=== PATIENT | female | born 1975 | race Caucasian/White ===

== ENCOUNTER 2017-08-04 12:05 | Day surgery (SDC) | payer OTHER, SELFPAY ==
[2017-08-04] VITALS (7 sets, daily range): BP systolic 112–140; BP diastolic 73–90; PULSE 42–88; RESP 12–16; TEMP 36.3–36.4; O2SAT 97–100; BMI 22.4
--- NOTE | 2017-08-04 | PATH_ITS ---
[facility] Accession Number: [id number] . 01 Material submitted: . ENDOMETRIAL CURRETTINGS . 02 Diagnosis: Endometrial Curettings: Portions of weakly proliferative endometrium with features of shedding; negative for glandular hyperplasia, cytologic atypia, and malignancy. Multiple portions of squamous and metaplastic squamous mucosa with reactive changes; negative for squamous dysplasia and malignancy. MRV/08/05/2017 . 02 Electronically signed: . Cami Mitchell MD, Pathologist NPI- [id number] . 01 Gross description: . Received one formalin-filled container, labeled with the patient's name, labeled endometrial curettings. The specimen consists of approximately a 0.75 cc aggregate of tissue, mucoid material, and blood, which is filtered, wrapped, and entirely submitted in one cassette. ([id number]) /FRR . 02 Pathologist provided ICD-10: N85.00 . 02 CPT . 271509 Performed at: 01 [facility] [address], [place], [place] [id number] MD Josep Galan MD Phone: [phone] Performed at: 02 [facility] [address] [place], [place] [id number] MD Deep Hood MD Phone: [phone]
--- NOTE | 2017-08-04 13:45 | PM.PREOP ---
Pre-operative Note Interval Note Pre-op Check: History & Physical Reviewed by Physician
[2017-08-04] MEDS: LACTATED RINGERS 1,000 ML 42 ML IV ×2 (14:20→15:29)
[2017-08-04] MEDS: CEFAZOLIN 2 GM/100 ML FROZ.PIGGY IV (14:25)
--- NOTE | 2017-08-04 14:44 | SUR.OPER ---
Lithotomy on padded OR bed, head on pillow, arms secured on padded arm boards at <90 degrees abduction. Legs secured in padded yellow fins stirrups.
[2017-08-04] MEDS: BUPIVACAINE 0.25% W/ EPI 50 ML VIAL INJ (14:50)
[2017-08-04] MEDS: SILVER NITRATE STICK 2 EACH TOP (15:10)
--- NOTE | 2017-08-04 15:16 | PM.GYNOP.1 ---
Operative Date/Time/Diagnoses - Date of procedure: 08/04/17 Time of procedure: 14:30 Pre-op diagnosis: Abnormal uterine bleeding Post-op diagnosis: same Procedure: Procedures Operation Date: 08/04/17 13:15 Actual Procedures Side Surgeon p Hysteroscopy D&C w/Endometrial Ablation Jo-Ann Chaney MD Indications: The patient is a 41-year-old 2 para 2 female here for hysteroscopy, Dilation and Curettage, and endometrial ablation for management of bothersome abnormal uterine bleeding. Her history is notable for endometriosis, bothersome bleeding, and pelvic pain. She has tried Ortho Evra and had heavy clots. Progesterone intrauterine device insertion was attempted twice in the clinic and could not sound the uterus past 3 cm. She had a pelvic ultrasound suggesting right pelvic congestion but was otherwise normal. Endometrial biopsy was obtained and was benign. Her endometriosis pain had been well controlled since her last laparoscopy, right salpingo-oophorectomy, and fulguration of endometriosis 2 years ago, but it has increased again in the last 11-12 months or so. She has noticed her menses, which have always been regular, have gradually gotten heavier and more painful. She has tried control pills and Depo-Provera in the past, both of which negatively affected her moods. She was also on Depo Lupron for 6 months. Dysmenorrhea starts 1 day prior to onset of bleeding which typically lasts for about 7 days. She has had 2 pregnancies, the first of which ended in a delivery for nonreassuring heart tracing, and the 2nd was repeat with a tubal ligation. The patient has also had worsening headaches over the last 4-6 months with exacerbations prior to onset of menses. Various management options were reviewed and the patient desired endometrial ablation and D&C to manage her abnormal uterine bleeding, though she understands that this may be minimally beneficial for management of her pain concerns. The risks, benefits, limitations, alternatives, expectations of surgery were discussed and consent was reviewed and signed prior to the day of surgery Surgeon: Jo-Ann Chaney Anesthesia Type: General and Local Operative Notes Findings: Exam under anesthesia: Bimanual exam noted a 7 week size retroverted uterus with no adnexal masses palpable. Hysteroscopic findings: Endometrial cavity appeared normal. Tubal ostia were seen bilaterally. Uterine cavity length was measured to be 5 cm and width 3 cm. Post endometrial ablation good cauterization was noted throughout the cavity. Closure Type: not applicable Specimen(s): endometrial curettings Applied: device(s) (Novasure lot # [id number], exp date 05/22/2018) Estimated blood loss (mL): 20 Blood products transfused: none Procedure in detail: The patient was taken to the operating room where general anesthesia with LMA was administered without difficulty. She was then placed in the high dorsal lithotomy position with her lower extremities in Yellofin stirrups. Exam under anesthesia was then performed with the findings as noted above. Perineum and vagina were then prepped and draped in a sterile fashion, and in-and-out catheterization was performed. Procedure Time-Out was performed. A sterile bivalve speculum was then placed. The posterior lip of the cervix was then grasped with a single-toothed tenaculum. Local anesthetic using 0.25% Marcaine with epinephrine was then injected at the 2:00, 4:00, 7:00, and 10:00 positions for a paracervical block. The cervix was then serially dilated until 7 mm 30-degree hysteroscope could be gently advanced to the uterine fundus. Using sterile saline for distention, poor visualization was noted secondary to blood, and the hysteroscope was removed. Sharp curettage was then performed on all 4 wallis of the uterus. This tissue was sent for pathology. The hysteroscope was then reintroduced, and the uterine cavity was visualized with the findings as noted above. The NovaSure endometrial ablation device was then placed onto the sterile field. The endometrial cavity length was measured to be 5 cm. The NovaSure device was then inserted into the endometrium, and the array deployed. The endometrial cavity width was determined to be 3 cm. Carbon dioxide gas insufflation test was then performed without complication. Ablation was then performed for 70 sec to a power of 83 W. The array was then retracted, and the device removed from the endometrial cavity. The diagnostic hysteroscope was then replaced into the endometrial cavity, and visualization noted excellent cauterization throughout. Of note, during this aspect of the procedure a small tract was noted which did not communicate with the peritoneal cavity consistent within the uterine perforation. The hysteroscope was then removed. The tenaculum was then removed, and the tenaculum sites hemostatic after application of silver nitrate. At this point, the procedure was deemed complete. Sponge, lap, and needle count were correct x3. There were no complications. The patient was then taken to the recovery room in stable condition. Complications: none Post-operative Condition: stable Disposition: same day surgery Plan for aftercare: PACU then discharge home.
[2017-08-04] MEDS: fentaNYL 100 MCG/2 ML INJ IV ×3 (15:22→15:35)
[2017-08-04] MEDS: OXYCODONE/ACETAMINOPHEN 5/325 TABLET 1 TAB PO (15:42)
== END 2017-08-04 16:22 | disposition home or self-care (01) ==
PROVIDERS: PCP Physician Assistant Medical; Visit Provider Obstetrics & Gynecology
PROC: 0U5B8ZZ Destruction of Endometrium, Via Natural or Artificial Opening Endoscopic (ICD-10-PCS; CPT 58563; principal; 2017-08-04 13:15)
DX: N85.00 Endometrial hyperplasia, unspecified (principal)
CPT/HCPCS: 58563; J0690; J1100; J1885; J2250; J2405; J2704; J3010